=== PATIENT | female | born 1955 | race African-American/Black ===

== ENCOUNTER 2020-03-16 00:35 | Emergency (ER) | payer SELFPAY ==
[~2020-03-16] VITALS: Ht 167.6 cm; Wt 74.0 kg
[~2020-03-16 00:35] MED LIST: AMLODIPINE5 MG PO
[2020-03-16 01:26] LABS: HEMOGLOBIN 11.5 g/dl (12.0-16.0); IMMATURE GRANULOCYTES 0.3 % (0.0-5.0); MEAN CELL VOLUME 85.1 fL CALC (80.0-100.0); MEAN CORPUSCULAR HGB 26.4 pG CALC (26.0-32.0); MEAN CORPUSCULAR HGB CONC 31.1 g/dL CAL (32.0-36.0); NEUT# 4.4 thou/uL (2.00-7.15); RED BLOOD COUNT 4.35 mill/uL (4.20-5.60); RED CELL DISTRI WIDTH 14.6 % (11.5-15.5)
[2020-03-16 01:28] LABS: URINE BILIRUBIN - DIPSTICK NEGATIVE (NEGATIVE); URINE BLOOD DIPSTICK NEGATIVE (NEGATIVE); URINE COLOR YELLOW; URINE GLUCOSE - DIPSTICK NEGATIVE (NEGATIVE); URINE KETONE NEGATIVE (NEGATIVE); URINE LEUK ESTERASE TRACE (NEGATIVE); URINE NITRITE - DIPSTICK NEGATIVE (Negative); URINE PH 6.5 (4.5-8.0); URINE PROTEIN - DIPSTICK NEGATIVE (NEG-TRACE); URINE UROBILINOGEN - DIPSTICK 0.2 E.U./dL (0.2)
[2020-03-16 01:52] LABS: ACT PARTIAL THROMBO TIME 24.3 SECONDS (20.0-32.5); PROTHROMBIN TIME 9.9 SECONDS (9.0-12.5)
[2020-03-16 01:53] LABS: ALBUMIN 4.5 g/dL (3.2-5.0); ALKALINE PHOSPHATASE 123 u/l (38-126); ANION GAP 13 (6-22 (CALC)); BILIRUBIN, TOTAL 0.3 mg/dL (0.0-1.4); BUN 18 mg/dL (8-23); BUN/CREATININE RATIO 22 (12-20 (CALC)); CARBON DIOXIDE 26 mmol/l (22-30); CHLORIDE 102 mmol/l (95-108); CREATININE 0.8 mg/dL (0.5-1.0); GFR > 60 ML/MIN (>=60 (CALC)); GFR FOR AFR.AMER. > 60 ML/MIN (>=60 (CALC)); POTASSIUM 3.9 mmol/l (3.5-5.1); SGOT/AST 26 u/l (9-36); SODIUM 138 mmol/l (137-146); TOTAL PROTEIN 7.3 g/dL (6.3-8.2)
[2020-03-16 02:06] VITALS: BP 186/80
[2020-03-16] MEDS ORDERED: AMLODIPINE BESYL5 MG PO (02:23)
== END 2020-03-16 02:35 | disposition home or self-care (01) | DRG 305 ==
LOC: ED 00:35
DX: I10 Essential (primary) hypertension (principal)

== ENCOUNTER 2022-10-01 05:54 | Day surgery (SDC) | payer MEDICARE ==
[~2022-10-01] VITALS: Ht 170.2 cm; Wt 78.9 kg
[~2022-10-01 05:54] MED LIST changes: +AMLODIPINE BESYL5 MG PO; +CELEBREX200 M1 PO; +D3-5050000 UNIT PO; +HYDROCHLOROT12.5 MG PO; +LIPITOR20 M1 PO; +LISINOPRIL2.5 MG PO; +NORVASC10 M1 PO
[2022-10-01 07:54] VITALS: BP 120/86
== END 2022-10-01 08:15 | disposition home or self-care (01) ==
LOC: ENDO 05:54
PROVIDERS: ATTEND Surgery
PROC: 0DJD8ZZ Inspection of Lower Intestinal Tract, Via Natural or Artificial Opening Endoscopic (ICD-10-PCS; principal; 2022-10-01)
DX: Z12.11 Encounter for screening for malignant neoplasm of colon (principal); K64.8 Other hemorrhoids; I10 Essential (primary) hypertension; E78.00 Pure hypercholesterolemia, unspecified; Z86.16 Personal history of COVID-19

== ENCOUNTER 2023-04-01 18:40 | Emergency (ER) | payer MEDICARE ==
[~2023-04-01] VITALS: Ht 167.6 cm; Wt 81.6 kg
[2023-04-01 20:16] VITALS: BP 154/63
[2023-04-01] MEDS ORDERED: DOXY-CAPS100 MG PO (20:17)
[2023-04-01] MEDS ORDERED: PREDNISONE50 MG PO (20:17)
[2023-04-01] MEDS ORDERED: VALTREX1 GM PO (20:17)
[2023-04-01 20:31] VITALS: BP 152/65
[2023-04-01 20:37] VITALS: BP 152/65
== END 2023-04-01 20:37 | disposition home or self-care (01) ==
LOC: ED 18:40
DX: B02.8 Zoster with other complications (principal); L03.312 Cellulitis of back [any part except buttock and flank]; I10 Essential (primary) hypertension